=== PATIENT | female | born 1980 | race African-American/Black ===

== ENCOUNTER 2017-09-29 12:23 | Inpatient (IN) | payer OTHER ==
[~2017-09-29] VITALS: Ht 160 cm; Wt 86.0 kg
[2017-09-29] VITALS (8 sets, daily range): BP systolic 131–175; BP diastolic 63–84
[~2017-09-29 12:23] MED LIST: ASPIR 8181 M1 PO; FOLIC ACID1 MG PO; IRON325 M1 PO; PRENATAL TABLE1 EAC3 PO
[2017-09-29 13:16] LABS: BASOPHIL (%) 0.2 % (0-1); EOSINOPHIL (%) 0.5 % (0-5); HEMATOCRIT 33.3 % (36.0-46.0); HEMOGLOBIN 10.6 G/DL (11.9-15.5); LYMPHOCYTE (%) 19.2 % (15-42); LYMPHOCYTE COUNT 1.6 K/uL (1.0-2.8); MCH 25.9 PG (29.0-34.0); MCHC 31.8 G/DL (30.0-36.0); MCV 81.4 FL (83-99); MONOCYTE (%) 8.5 % (3-12); MONOCYTE COUNT 0.7 K/uL (0-0.8); NEUTROPHIL (%) 70.6 % (45-76); NEUTROPHIL COUNT 5.9 K/uL (1.8-6.4); PLATELET COUNT 206 K/uL (156-360); RBC DIS.WIDTH-CV 14.2 % (11.8-14.6); RBC DIS.WIDTH-SD 41.5 % (39-53); RED BLOOD COUNT 4.09 M/uL (3.80-5.20); WHITE BLOOD COUNT 8.3 K/uL (4.1-10.2)
[2017-09-29 13:24] LABS: ALBUMIN 3.2 g/dL (3.2-4.8); CHLORIDE 109 mEq/L (99-109); POTASSIUM 3.7 mEq/L (3.7-5.4); SODIUM 140 mEq/L (136-147)
[2017-09-29 13:27] LABS: GLUCOSE 70 mg/dL (70-99); TOTAL PROTEIN 6.2 g/dL (6.4-8.3)
[2017-09-29 13:29] LABS: TOTAL BILIRUBIN 0.3 mg/dL (0.0-1.0)
[2017-09-29 13:30] LABS: ALKALINE PHOSPHATASE 192 IU/L (3-129); CREATININE 0.6 mg/dL (0.6-1.3); GFR ESTIMATE (CALCULATED) > 59 mL/min/
[2017-09-29 13:31] LABS: UREA NITROGEN (BUN) 4 mg/dL (9-23)
[2017-09-29 13:32] LABS: AST (GOT) 20 IU/L (2-34)
[2017-09-29 13:33] LABS: ALT (GPT) 19 IU/L (3-49); URIC ACID 4.6 mg/dL (3.1-9.2)
[2017-09-29 13:55] LABS: LACTATE DEHYDROGENASE 261 IU/L (20-246)
[2017-09-29] MEDS ORDERED: IBUPROFEN800 MG PO (14:21)
[2017-09-29] MEDS ORDERED: ENDOCET 5-3251 EACH PO (14:21)
[2017-09-30] VITALS (8 sets, daily range): BP systolic 128–182; BP diastolic 60–87
[2017-09-30 06:53] LABS: BASOPHIL (%) 0.2 % (0-1); EOSINOPHIL (%) 0.3 % (0-5); HEMATOCRIT 28.2 % (36.0-46.0); HEMOGLOBIN 9.1 G/DL (11.9-15.5); IMMATURE GRANULOCYTE (%) 0.5 % (0.0-0.7); LYMPHOCYTE (%) 12.2 % (15-42); LYMPHOCYTE COUNT 1.1 K/uL (1.0-2.8); MCH 25.9 PG (29.0-34.0); MCHC 32.3 G/DL (30.0-36.0); MCV 80.3 FL (83-99); MONOCYTE (%) 8.9 % (3-12); MONOCYTE COUNT 0.8 K/uL (0-0.8); NEUTROPHIL (%) 77.9 % (45-76); NEUTROPHIL COUNT 7.1 K/uL (1.8-6.4); PLATELET COUNT 187 K/uL (156-360); RBC DIS.WIDTH-CV 14.1 % (11.8-14.6); RBC DIS.WIDTH-SD 41.1 % (39-53); RED BLOOD COUNT 3.51 M/uL (3.80-5.20); WHITE BLOOD COUNT 9.2 K/uL (4.1-10.2)
[2017-09-30 17:58] LABS: BASOPHIL (%) 0.1 % (0-1); EOSINOPHIL (%) 0.6 % (0-5); EOSINOPHIL COUNT 0.1 K/uL (0-0.3); HEMATOCRIT 27.8 % (36.0-46.0); IMMATURE GRANULOCYTE (%) 0.6 % (0.0-0.7); LYMPHOCYTE (%) 10.3 % (15-42); LYMPHOCYTE COUNT 0.9 K/uL (1.0-2.8); MCH 26.1 PG (29.0-34.0); MCHC 32.4 G/DL (30.0-36.0); MCV 80.6 FL (83-99); MONOCYTE (%) 9.3 % (3-12); MONOCYTE COUNT 0.8 K/uL (0-0.8); NEUTROPHIL (%) 79.1 % (45-76); PLATELET COUNT 187 K/uL (156-360); RBC DIS.WIDTH-CV 14.3 % (11.8-14.6); RBC DIS.WIDTH-SD 41.9 % (39-53); RED BLOOD COUNT 3.45 M/uL (3.80-5.20); WHITE BLOOD COUNT 8.9 K/uL (4.1-10.2)
[2017-09-30 18:07] LABS: ALBUMIN 2.8 G/DL (3.2-4.8); CHLORIDE 107 MEQ/L (99-109); POTASSIUM 3.5 MEQ/L (3.7-5.4); SODIUM 137 MEQ/L (136-147); TOTAL BILIRUBIN 0.3 MG/DL (0.0-1.0)
[2017-09-30 18:13] LABS: ALKALINE PHOSPHATASE 137 IU/L (3-129); ALT (GPT) 17 IU/L (3-49); AST (GOT) 27 IU/L (2-34); CREATININE 0.5 MG/DL (0.6-1.3); GFR ESTIMATE (CALCULATED) > 59 mL/min/; GLUCOSE 86 mg/dL (70-99); TOTAL PROTEIN 5.4 G/DL (6.4-8.3); UREA NITROGEN (BUN) 5 mg/dL (9-23)
[2017-10-01] VITALS (7 sets, daily range): BP systolic 128–189; BP diastolic 62–93
[2017-10-02] VITALS (12 sets, daily range): BP systolic 135–192; BP diastolic 66–89
[2017-10-03 03:16] VITALS: BP 176/77
[2017-10-03 04:32] VITALS: BP 132/71
[2017-10-03 08:06] VITALS: BP 123/65
[2017-10-03 11:26] VITALS: BP 132/61
[2017-10-03 13:46] VITALS: BP 138/70
[2017-10-03 14:51] VITALS: BP 144/68
[2017-10-03] MEDS ORDERED: PROCARDIA XL30 MG PO (14:55)
== END 2017-10-03 16:30 | disposition home or self-care (01) | DRG 765 ==
LOC: LDRP-OP → 2WEST 12:24 → LDRP-OP 11-04 09:37
PROVIDERS: Obstetrics & Gynecology; Obstetrics & Gynecology Gynecology
PROC: 10D00Z1 Extraction of Products of Conception, Low, Open Approach (ICD-10-PCS; principal; 2017-09-29)
DX: O34.211 Maternal care for low transverse scar from previous cesarean delivery (principal); O10.02 Pre-existing essential hypertension complicating childbirth; Z37.0 Single live birth; Z3A.38 38 weeks gestation of pregnancy; O13.4 Gestational [pregnancy-induced] hypertension without significant proteinuria, complicating childbirth; O12.04 Gestational edema, complicating childbirth
CPT/HCPCS: 71046; 80053; 83615; 84550; 85025; 85025 91; 86850; 86900; 86901; 87040; 87086; J0295; J0690; J1885; J2270; J2274; J2405; J2590; J2765; J7050; J7120